=== PATIENT | male | born 1965 | race Caucasian/White ===

== ENCOUNTER → 2021-11-02 10:50 | Outpatient (BNVA) | payer SELFPAY | PROVIDERS: Visit Provider Physician Assistant | DX: Z02.79 Encounter for issue of other medical certificate (principal) ==

== ENCOUNTER → 2022-03-10 09:38 | Outpatient (BNVA) | payer OTHER, SELFPAY | PROVIDERS: Visit Provider Physician Assistant Medical | DX: M23.92 Unspecified internal derangement of left knee (principal) | CPT/HCPCS: 73564; 99203 ==

== ENCOUNTER → 2022-03-14 07:06 | Outpatient (BNVA) | payer OTHER, SELFPAY | PROVIDERS: Visit Provider Physician Assistant Medical | DX: M23.92 Unspecified internal derangement of left knee (principal) | CPT/HCPCS: 99213 ==

== ENCOUNTER → 2022-03-21 07:44 | Outpatient (BNVA) | payer OTHER, SELFPAY | PROVIDERS: Visit Provider Physician Assistant Medical | DX: M23.92 Unspecified internal derangement of left knee (principal) | CPT/HCPCS: 99213 ==

== ENCOUNTER → 2023-10-23 07:20 | Outpatient (BNVA) | payer SELFPAY | PROVIDERS: Visit Provider Physician Assistant Medical | DX: Z02.79 Encounter for issue of other medical certificate (principal) ==